=== PATIENT | male | born 1980 | race Caucasian/White ===

== ENCOUNTER 2017-03-03 10:10 | Emergency (ER) | payer BC ==
[2017-03-03 10:19] VITALS: BP 116/67; PULSE 67; RESP 20; TEMP 98
[2017-03-03] MEDS ORDERED: PROPARACAINE 0.5% OPHTH DROPS 15 ML BTL LEFT EYE STA (10:23)
[2017-03-03] MEDS ORDERED: PROPARACAINE 0.5% OPHTH DROPS 15 ML BTL ONE (10:24)
[2017-03-03] MEDS ORDERED: DIPH,PERTUS(ACELL)TETVAC-LF 0.5 ML VIAL IM ONE (10:31)
--- NOTE | 2017-03-03 10:35 | ED ---
General Adult HPI - General Chief complaint: Eye Problems Stated complaint: LEFT EYE IRRITATION Time Seen by Provider: 03/03/17 10:21 Source: patient, RN notes reviewed Mode of arrival: ambulatory Limitations: no limitations - History of Present Illness Initial comments: 36-year-old male presents to the emergency department with a chief complaint of left eye irritation. Patient states that this started yesterday. Patient states that she is very irritated. 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 He is in vision. He states that he has not had any other injuries. This time. Patient was concerned because of the object that he thinks his and his eyes without that he should be seen. Patient denies any recent fever, chills, shortness of breath, chest pain, back pain, abdominal pain, nausea vomiting, numbness or tingling, dysuria or hematuria, constipation or diarrhea, headaches or visual changes, or any other current symptoms. - Related Data Home Medications Medication Instructions Recorded Confirmed Ibuprofen [Motrin] 200 - 400 mg PO Q6HR PRN 03/03/17 03/03/17 Previous Rx's Medication Instructions Recorded Tobramycin 0.3% Ophth Oint [Tobrex 1 applic LEFT EYE TID #1 tube 03/03/17 0.3% Ophth Oint] Allergies Allergy/AdvReac Type Severity Reaction Status Date / Time No Known Allergies Allergy Verified 03/03/17 10:35 Review of Systems ROS Statement: Those systems with pertinent positive or pertinent negative responses have been documented in the HPI. ROS Other: All systems not noted in ROS Statement are negative. Past Medical History Additional Past Medical History / Comment(s): HEMORRHOIDS WITH PAIN. History of Any Multi-Drug Resistant Organisms: None Reported Additional Past Surgical History / Comment(s): hemorroidectomy- DONE IN OFFICE- NO ANESTHESIA. Additional Past Anesthesia/Blood Transfusion Reaction / Comment(s): PT HAS NEVER RECEIVED ANESTHESIA Past Psychological History: No Psychological Hx Reported Smoking Status: Never smoker Past Alcohol Use History: Rare Past Drug Use History: Marijuana - Past Family History Mother Family Medical History: No Reported History General Exam Limitations: no limitations General appearance: alert, in no apparent distress Head exam: Present: atraumatic, normocephalic, normal inspection Expanded Eyelids: Normal Inspection: Bilateral Pupils: Regular, Round: Bilateral Sclera/Conjunctival: Normal Inspection: Right, Foreign Body: Left ENT exam: Present: normal exam, mucous membranes moist Neck exam: Present: normal inspection. Absent: tenderness, meningismus, lymphadenopathy Respiratory exam: Present: normal lung sounds bilaterally. Absent: respiratory distress, wheezes, rales, rhonchi, stridor Cardiovascular Exam: Present: regular rate, normal rhythm, normal heart sounds. Absent: systolic murmur, diastolic murmur, rubs, gallop, clicks Neurological exam: Present: alert, oriented X3 Psychiatric exam: Present: normal affect, normal mood Skin exam: Present: warm, dry, intact, normal color. Absent: rash Course Vital Signs 03/03/17 10:18 Temperature 98.0 F Pulse Rate 67 Respiratory 20 Rate Blood Pressure 116/67 O2 Sat by Pulse 100 Oximetry Procedures - Procedures Initial comment: Patient underwent proparacaine injection with lamp was used additional foreign body. Actually it was removed with a Q-tip was used to remove the rest of the foreign body. No redness ring remained. Patient tolerated well. Medical Decision Making - Medical Decision Making 36-year-old male presents for foreign bodies left eye. This time patient. He was started on tobramycin. Tetanus was updated. We discussed follow-up with the eye doctor and the patient is in agreement. All questions have been answered. This time patient will be discharged home. Disposition Clinical Impression: Foreign body of left eye Disposition: HOME SELF-CARE Condition: Stable Instructions: Eye Foreign Body (ED) Additional Instructions: Please use medication as discussed. Please follow up with family doctor if symptoms have not improved over the next two days. Please return to the emergency room if your symptoms increase or worsen or for any other concerns. Prescriptions: Tobramycin 0.3% Ophth Oint [Tobrex 0.3% Ophth Oint] 1 applic LEFT EYE TID #1 tube Referrals: Regulo Mariano MD [Primary Care Provider] - 1-2 days Cesar Mejia MD [STAFF PHYSICIAN] - 1-2 days Time of Disposition: 10:44
== END 2017-03-03 10:53 | disposition home or self-care (01) ==
LOC: EC 10:10
DX: T15.12XA Foreign body in conjunctival sac, left eye, initial encounter (principal); Z23 Encounter for immunization; X58.XXXA Exposure to other specified factors, initial encounter
CPT/HCPCS: 65205; 90471; 90715; 99283